=== PATIENT | female | born 1995 | race Caucasian/White ===

== ENCOUNTER 2021-02-19 09:45 | Emergency (ER) | payer OTHER ==
[~2021-02-19] VITALS: Ht 160 cm; Wt 81.0 kg
[2021-02-19] MEDS ORDERED: dexamethasone sod phosphate 10mg/ml inj PO STA (09:51)
[2021-02-19] MEDS ORDERED: diphenhydrAMINE 50 mg/ml inj IM ONE (09:55)
[2021-02-19 10:04] VITALS: BP 131/81
== END 2021-02-19 11:08 | disposition home or self-care (01) ==
LOC: ER 09:46
DX: T78.49XA Other allergy, initial encounter (principal); Z88.0 Allergy status to penicillin; Z91.040 Latex allergy status; Z88.8 Allergy status to other drugs, medicaments and biological substances; Y92.89 Other specified places as the place of occurrence of the external cause
CPT/HCPCS: 96372; 99283; J1100; J1200